=== PATIENT | female | born 1970 | race Caucasian/White ===

== ENCOUNTER 2021-07-07 11:55 | Emergency (ER) | payer MEDICAID ==
[2021-07-07] MEDS ORDERED: Ondansetron 4 MG/2 ML SDV IVPUSH ONE (12:19)
[2021-07-07] MEDS ORDERED: Sodium Chloride 0.9% 1,000 ML IV SCH (12:30)
--- NOTE | 2021-07-07 12:50 | EDM.PDOC ---
ED HPI GENERAL MEDICAL PROBLEM - General Stated Complaint: SYNCOPAL EPISODE Time Seen by Provider: 07/07/21 12:00 Source of Information: Reports: Patient, Family History Limitations: Reports: No Limitations - History of Present Illness INITIAL COMMENTS - FREE TEXT/NARRATIVE: Patient presented to the ED because of a brief unresponsive episode for 2 minutes. said that he was talking to her at 11:30 am and just gave him a stare. she c/o nause but no vomiting. No headache, dizziness,, chest pain, palpitations. There was no LOC. - Related Data Allergies Allergy/AdvReac Type Severity Reaction Status Date / Time No Known Allergies Allergy Verified 07/07/21 12:18 ED ROS GENERAL - Review of Systems Review Of Systems: See Below Constitutional: Reports: No Symptoms HEENT: Reports: No Symptoms Respiratory: Reports: No Symptoms Cardiovascular: Reports: No Symptoms Endocrine: Reports: No Symptoms GI/Abdominal: Reports: No Symptoms : Reports: No Symptoms Musculoskeletal: Reports: No Symptoms Skin: Reports: No Symptoms Neurological: Reports: Syncope Psychiatric: Reports: No Symptoms ED EXAM, GENERAL - Physical Exam Exam: See Below Exam Limited By: No Limitations General Appearance: Alert, No Apparent Distress Eye Exam: Bilateral Eye: PERRL Ears: Normal External Exam, Normal Canal, Hearing Grossly Normal Nose: Normal Inspection, Normal Mucosa, No Blood Throat/Mouth: Normal Inspection, Normal Lips, Normal Teeth, Normal Gums, Normal Oropharynx, Normal Voice Head: Atraumatic, Normocephalic Neck: Normal Inspection, Supple, Non-Tender, Full Range of Motion Respiratory/Chest: No Respiratory Distress, Lungs Clear, Normal Breath Sounds, No Accessory Muscle Use, Chest Non-Tender Cardiovascular: Normal Peripheral Pulses, Regular Rate, Rhythm, No Edema, No Gallop GI/Abdominal: Normal Bowel Sounds, Soft, Non-Tender, No Organomegaly, No Distention, No Abnormal Bruit, No Mass Extremities: Normal Inspection, Normal Range of Motion, Non-Tender, No Pedal Edema, Normal Capillary Refill Neurological: Alert, Oriented, CN II-XII Intact, Normal Cognition, Normal Gait, Normal Reflexes, No Motor/Sensory Deficits Psychiatric: Normal Affect, Normal Mood Course - Vital Signs Text/Narrative:: Lab/Head Ct result was reviewed and discussed with patient NS 1 L bolus Zofran 4 mg iV x1 Last Recorded V/S: Last Vital Signs Temp 36.6 C 07/07/21 13:15 Pulse 69 07/07/21 13:15 Resp 16 07/07/21 13:15 BP 124/74 07/07/21 13:15 Pulse Ox 100 07/07/21 13:15 - Orders/Labs/Meds Labs: Laboratory Tests 07/07/21 07/07/21 07/07/21 Range/Units 12:41 12:41 12:41 WBC 6.2 (3.0-10.3) x10-3/uL RBC 4.05 (3.60-5.20) x10(6)uL Hgb 11.3 L (11.4-15.5) g/dL Hct 34.6 (34.2-48.2) % MCV 85.4 (76.7-100.5) fL MCH 28.0 (23.9-33.9) pg MCHC 32.7 (31.9-34.8) g/dL RDW 12.4 (12.3-16.5) % Plt Count 248 (151-488) x10(3)uL MPV 7.1 (7.1-12.4) fL Neut % (Auto) 71.6 (30.8-76.2) % Lymph % (Auto) 20.3 (18.4-52.1) % [place] % (Auto) 6.0 (4.4-15.7) % Eos % (Auto) 1.7 (0.6-8.1) % Baso % (Auto) 0.4 (0.2-1.5) % Neut # (Auto) 4.4 (1.5-6.3) x10-3/uL Lymph # (Auto) 1.3 (1.0-4.4) x10-3/uL [place] # (Auto) 0.4 (0.3-1.0) x10-3/uL Eos # (Auto) 0.1 (0.0-0.8) x10-3/uL Baso # (Auto) 0.0 (0.0-0.1) x10-3/uL Sodium 138 (135-145) mmol/L Potassium 4.1 (3.5-5.3) mmol/L Chloride 104 (100-110) mmol/L Carbon Dioxide 25 (21-32) mmol/L BUN 12 (7-18) mg/dL Creatinine 0.7 (0.55-1.02) mg/dL Est Cr Clr Drug Dosing TNP Estimated GFR (MDRD) > 60 (>60) BUN/Creatinine Ratio 17.1 (9-20) Glucose 109 (80-116) mg/dL Calcium 8.7 (8.6-10.2) mg/dL Total Bilirubin 0.3 (0.1-1.3) mg/dL AST 16 (5-25) IU/L ALT 26 (12-36) U/L Alkaline Phosphatase 71 (56-112) IU/L Troponin I 4.0 (4.0-60.3) pg/mL Total Protein 6.3 (6.0-8.0) g/dL Albumin 3.5 (3.5-5.2) g/dL Globulin 2.8 g/dL Albumin/Globulin Ratio 1.3 Meds: Medications Discontinued Medications Generic Name Dose Route Start Last Admin Trade Name Freq PRN Reason Stop Dose Admin Sodium Chloride 1,000 mls @ 999 mls/hr 07/07/21 12:30 07/07/21 12:30 Normal Saline IV 999 mls/hr ASDIRECTED WALTER Administration Ondansetron HCl 4 mg 07/07/21 12:19 07/07/21 12:41 Ondansetron 4 Mg/2 Ml Sdv IVPUSH 07/07/21 12:20 4 mg ONETIME ONE Administration Departure - Departure Time of Disposition: 13:00 Disposition: Home, Self-Care 01 Condition: Good Clinical Impression: Vasovagal syncope - Discharge Information Instructions: Syncope, [id number] Referrals: PCP,None [Primary Care Provider] - Forms: ED Department Discharge Additional Instructions: Please read discharge instructions on vasovagal syncope Follow up as needed
--- NOTE | 2021-07-07 14:06 | CT ---
CT HEAD WITHOUT CONTRAST INDICATION: Episode of altered level of consciousness, no history of trauma. TECHNIQUE: Spiral 3.75 mm axial sections were obtained through the brain without contrast with axial, sagittal and coronal reconstructions 07/07/21 - no comparisons. Total exam DLP was 1244.99 mGy/cm. FINDINGS: The paranasal sinuses and the left mastoid air cells appear to be well aerated. The right mastoid air cells appear to be partially opacified raising the question of possible mastoiditis on the right. No cranial abnormality was identified. No shift of midline structures or ventricular abnormalities were identified. Calcifications are noted in the right internal carotid artery. Patchy decreased density is noted in the white matter frontoparietal areas, especially on the right compatible with microvascular disease type change. This is moderate. No bleeding site or hematoma was seen. The orbits appear to be intact . IMPRESSION: Cerebrovascular disease with white matter changes compatible with moderate microvascular disease that is somewhat more prominent on the right than left. The report was called to Dr. Gee at 1309 hours 07/07/21. [facility]
--- NOTE | 2021-07-08 16:29 | PCM.EKG ---
#1 Interpretation EKG Date: 07/07/21 Time: 11:58 Rhythm: NSR Rate (Beats/Min): 53 [place]: Normal P-Wave: Present QRS: Normal ST-T: Normal QT: Normal TN/PQ Interval: 145 Comparison: No Change EKG Interpretation Comments: NSR
== END 2021-07-07 13:30 | disposition home or self-care (01) ==
LOC: FB.ED 11:55
DX: R55 Syncope and collapse (principal)
CPT/HCPCS: 36415; 70450; 80053; 84484; 85025; 93005; 96374; 99285; J2405; J7030